=== PATIENT | male | born 1995 | race American Indian/Alaskan Native ===

== ENCOUNTER 2016-09-05 09:49 | Emergency (ER) | payer SELFPAY ==
[2016-09-05 10:02] VITALS: BP 139/87
== END 2016-09-05 10:00 | disposition left against medical advice (07) ==
LOC: ED 09:49
DX: M25.571 Pain in right ankle and joints of right foot (principal); M25.572 Pain in left ankle and joints of left foot; J45.909 Unspecified asthma, uncomplicated; Z91.018 Allergy to other foods; Z53.21 Procedure and treatment not carried out due to patient leaving prior to being seen by health care provider